=== PATIENT | male | born 1955 | race Caucasian/White ===

== ENCOUNTER → 2021-08-05 09:50 | Outpatient (BNVA) | payer OTHER, SELFPAY | PROVIDERS: PCP Family Medicine; Visit Provider Surgery | DX: Z20.822 Contact with and (suspected) exposure to COVID-19 (principal) | CPT/HCPCS: 87635 ==

== ENCOUNTER 2021-08-11 07:31 | Day surgery (SDC) | payer OTHER, SELFPAY ==
[2021-08-08 12:34] VITALS: BMI 24.0
--- NOTE | 2021-08-11 08:01 | ANES.PREANE2 ---
Pre-Anesthetic Assessment Pre-Anesthetic Assessment: Height/Weight: Height 1.78 m Weight 76.204 kg Preop Diagnosis: screening colonoscopy Proposed Procedure: Operation Date: 08/11/21 09:00 Proposed Procedures p Colonoscopy 99605 K63.5(Not Applicable) - Baldomero Huitron MD Was Beta Sonja taken within 24 hours: Yes Was Clonidine taken within 24 hours: N/A Social: Social History: No tobacco Exam: Pre-Anes Outpt Exam: alert, oriented x 3, clear to auscultation bilaterally and regular rate & rhythm Airway: Submandibular: WNL Cervical ROM: WNL MP: 2 History/ROS: No significant complaints CV/HEM: CV/HEM: HTN Metabolic: Metabolic: Hyperlipidemia Anesthetic Plan: ASA status: 2 Anesthesia: Anesthesia Evaluation and MAC Risk of > 500 ml blood loss (7ml/kg in children): No PFSH Anesthesia PFSH: Medical History (Updated 05/24/21 @ 14:18 by Baldomero Huitron MD) Colon polyps Hyperlipidemia Hypertension Surgical History (Updated 05/24/21 @ 14:18 by Baldomero Huitron MD) History of colonoscopy with polypectomy 2016 History of knee replacement right 2014 History of rotator cuff surgery right (x2) History of vasectomy Family History (Updated 05/24/21 @ 13:55 by Aneta Bonner) Other CAD (coronary artery disease) Diabetes Denies family history of Dementia Lung disease Cancer Stroke Social History (Updated 05/24/21 @ 13:55 by Aneta Bonner) Smoking and tobacco status: never smoked Second hand smoke exposure: No Alcohol intake: never Lives independently: Yes Data Anesthesia Cardiac Studies: No Data to Display
[2021-08-11] MEDS: sodium chloride 0.9% 1,000 ML 30 ML IV (08:10)
[2021-08-11 08:20] VITALS: BP 130/82; PULSE 53; RESP 18; TEMP 36.6; O2SAT 98
--- NOTE | 2021-08-11 09:16 | W.PM.OPSFHP ---
Same Day Surgery H&P Indication for Procedure/HPI DATE OF PROCEDURE: August 11, 2021 CHIEF COMPLAINT/INDICATIONFOR SURGICAL PROCEDURE: colon PREOP DIAGNOSIS: screening colonoscopy PLANNED PROCEDRUE: Operation Date: 08/11/21 09:00 Proposed Procedures p Colonoscopy 69410 K63.5(Not Applicable) - Baldomero Huitron MD Medications/Allergies* Home Medications Medication Instructions Recorded Confirmed Type aspirin 81 mg tablet,delayed 81 mg PO DAILY 05/24/21 08/11/21 History release atenolol 25 mg tablet 25 mg PO DAILY 05/24/21 08/11/21 History hydrochlorothiazide 12.5 mg capsule 12.5 mg PO DAILY 05/24/21 08/11/21 History Vitamin D (with calcium) 50 mcg PO DAILY 08/08/21 08/11/21 History simvastatin 80 mg PO DAILY 08/08/21 08/11/21 History Allergies/Adverse Reactions Allergy/AdvReac Type Severity Reaction Status Date / Time acetaminophen [From Percocet] Allergy Severe dizziness Verified 08/11/21 08:04 oxycodone [From Percocet] Allergy Severe dizziness Verified 08/11/21 08:04 Current Medications: Generic Name Dose Route Start Last Admin Trade Name Freq PRN Reason Stop Dose Admin Sodium Chloride 1,000 mls @ 30 mls/hr 08/11/21 07:45 08/11/21 08:10 Sodium Chloride 0.9% IV 08/12/21 07:44 30 mls/hr .Q24H TERESA Administration Pertinent History/Comorbid Conditions* Medical History (Updated 05/24/21 @ 14:18 by Baldomero Huitron MD) Colon polyps Hyperlipidemia Hypertension Surgical History (Updated 05/24/21 @ 14:18 by Baldomero Huitron MD) History of colonoscopy with polypectomy 2016 History of knee replacement right 2014 History of rotator cuff surgery right (x2) History of vasectomy Family History (Updated 05/24/21 @ 13:55 by Aneta Bonner) Diabetes CAD (coronary artery disease) Denies family history of Dementia Lung disease Cancer Stroke Social History Smoking and tobacco status: never smoked Second hand smoke exposure: No Alcohol intake: never Lives independently: Yes Pertinent Exam Findings alert, oriented x 3 and regular rate & rhythm Recommendations Surgery/Procedure today Coding Level of Care Code Acute [employer]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
--- NOTE | 2021-08-11 09:17 | W.PM.OPSFHP ---
Same Day Surgery H&P Indication for Procedure/HPI DATE OF PROCEDURE: August 11, 2021 CHIEF COMPLAINT/INDICATIONFOR SURGICAL PROCEDURE: colonoscopy PREOP DIAGNOSIS: screening colonoscopy PLANNED PROCEDRUE: Operation Date: 08/11/21 09:00 Proposed Procedures p Colonoscopy 60646 K63.5(Not Applicable) - Baldomero Huitron MD Medications/Allergies* Home Medications Medication Instructions Recorded Confirmed Type aspirin 81 mg tablet,delayed 81 mg PO DAILY 05/24/21 08/11/21 History release atenolol 25 mg tablet 25 mg PO DAILY 05/24/21 08/11/21 History hydrochlorothiazide 12.5 mg capsule 12.5 mg PO DAILY 05/24/21 08/11/21 History Vitamin D (with calcium) 50 mcg PO DAILY 08/08/21 08/11/21 History simvastatin 80 mg PO DAILY 08/08/21 08/11/21 History Allergies/Adverse Reactions Allergy/AdvReac Type Severity Reaction Status Date / Time acetaminophen [From Percocet] Allergy Severe dizziness Verified 08/11/21 08:04 oxycodone [From Percocet] Allergy Severe dizziness Verified 08/11/21 08:04 Current Medications: Generic Name Dose Route Start Last Admin Trade Name Freq PRN Reason Stop Dose Admin Sodium Chloride 1,000 mls @ 30 mls/hr 08/11/21 07:45 08/11/21 08:10 Sodium Chloride 0.9% IV 08/12/21 07:44 30 mls/hr .Q24H TERESA Administration Pertinent History/Comorbid Conditions* Medical History (Updated 05/24/21 @ 14:18 by Baldomero Huitron MD) Colon polyps Hyperlipidemia Hypertension Surgical History (Updated 05/24/21 @ 14:18 by Baldomero Huitron MD) History of colonoscopy with polypectomy 2016 History of knee replacement right 2014 History of rotator cuff surgery right (x2) History of vasectomy Family History (Updated 05/24/21 @ 13:55 by Aneta Bonner) Diabetes CAD (coronary artery disease) Denies family history of Dementia Lung disease Cancer Stroke Social History Smoking and tobacco status: never smoked Second hand smoke exposure: No Alcohol intake: never Lives independently: Yes Pertinent Exam Findings alert and oriented x 3 Recommendations Surgery/Procedure today Coding Level of Care Code Acute 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
[2021-08-11 09:44] VITALS: BP 96/67; PULSE 51; RESP 12; TEMP 36.2; O2SAT 96
--- NOTE | 2021-08-11 09:49 | ANE.PACU2 ---
Inpatient post-anesthesia follow up: Airway intact: Yes Vital signs: Temperature 97.2 F Pulse Rate 51 Respiratory Rate 12 Blood Pressure 96/67 Pulse Oximetry 96 Oxygen Delivery Me thod Room Air Oxygen Flow Rate Fraction of Inspir ed Oxygen Hydration adequate: Yes Nausea and vomiting: No Pain level: 1 Mental status: Baseline
[2021-08-11 09:59] VITALS: BP 123/82; PULSE 50; RESP 14; TEMP 36.6; O2SAT 97
== END 2021-08-11 10:25 | disposition home or self-care (01) ==
PROVIDERS: PCP Family Medicine; Visit Provider Surgery
PROC: 0DJD8ZZ Inspection of Lower Intestinal Tract, Via Natural or Artificial Opening Endoscopic (ICD-10-PCS; CPT 45378; principal; 2021-08-11 09:00)
DX: Z12.11 Encounter for screening for malignant neoplasm of colon (principal); K57.30 Diverticulosis of large intestine without perforation or abscess without bleeding; K64.8 Other hemorrhoids; I10 Essential (primary) hypertension; E78.5 Hyperlipidemia, unspecified; Z79.82 Long term (current) use of aspirin
CPT/HCPCS: 45378; 96360; 96361; J7030

== ENCOUNTER → 2023-01-02 13:36 | Outpatient (BNVA) | payer OTHER, SELFPAY | PROVIDERS: PCP Family Medicine; Visit Provider Internal Medicine | DX: R00.2 Palpitations (principal); R07.9 Chest pain, unspecified; I10 Essential (primary) hypertension; Z79.82 Long term (current) use of aspirin; R55 Syncope and collapse | CPT/HCPCS: 93005; 99204 ==

== ENCOUNTER 2023-01-19 09:29 | Outpatient (CLI) | payer OTHER, SELFPAY ==
--- NOTE | 2023-01-19 10:15 | USCV_ITS ---
Delano Felix Age: 67 Gender: M : 1955 Exam Date: 01/19/2023 09:57 Ordering Phys: Enrique Edmonds M.D ([email or web address]) Technologist: [place] [facility] [place]: sob, chest pain BP: 125 / 75 HR: 57 Rhythm: Other Technical Quality: Adequate MEASUREMENTS (Male / Female) Normal Values 2D ECHO LV Diastolic Diameter PLAX 4.7 cm 4.2 - 5.9 / 3.9 - 5.3 cm LV Systolic Diameter PLAX 3.5 cm IVS Diastolic Thickness 1.4 cm 0.6 - 1.0 / 0.6 - 0.9 cm IVS Systolic Thickness 1.6 cm LVPW Diastolic Thickness 1.5 cm 0.6 - 1.0 / 0.6 - 0.9 cm LVPW Systolic Thickness 1.3 cm LVOT Diameter 2.1 cm LV Ejection Fraction 2D Teich 50.9 % LV Ejection Fraction MOD 2C 54.0 % LV Ejection Fraction 2C AL 53.1 % LA Diameter 3.5 cm Aorta at Sinotubular Diameter 3.0 cm IVC Diameter 1.1 cm M-MODE Aortic Annulus Diameter 4.1 cm LA Ao Ratio MM 0.9 MV E Point Septal Separation 0.3 cm DOPPLER AV Peak Velocity 131.0 cm/s LVOT Peak Velocity 114.0 cm/s AV Area Cont Eq vti 3.2 cm squared AV Area Cont Eq pk 3.0 cm squared MV Area PHT 1.7 cm squared Mitral E to A Ratio 0.8 MV E' Velocity 29.0 cm/s Mitral E to MV E' Ratio 4.2 Mitral E to LV E' Lateral Ratio 3.1 Mitral E to LV E' Septal Ratio 6.8 TR Peak Velocity 248.0 cm/s TR Peak Gradient 24.6 mmHg TV Peak E Velocity 100.0 cm/s Right Atrial Pressure 3.0 mmHg Pulmonary Artery Systolic Pressu 27.6 mmHg RV Acceleration Time 0.1 s FINDINGS Left Ventricle Left ventricle is normal in size. LV systolic function is normal with EF of 50 to 55%. Septal motion is consistent with conduction abnormality. Grade 1 diastolic dysfunction Right Ventricle Normal in size and function Right Atrium Normal in size Left Atrium Normal in size Mitral Valve Structurally normal mitral valve. Mild mitral regurgitation. Aortic Valve Structurally normal aortic valve. No significant stenosis or regurgitation. Tricuspid Valve Mild tricuspid regurgitation. Pulmonary artery systolic pressure is normal. Pulmonic Valve Not well-visualized. Pericardium Normal Aorta Normal in size IVC Appears to be normal CONCLUSIONS LV systolic function is normal with EF of 50 to 55%. Septal motion is consistent with conduction abnormality Grade 1 diastolic dysfunction Mild mitral regurgitation Mild tricuspid regurgitation No comparison studies are available Enrique Edmonds MD (Electronically Signed) Final Date: 19 January 2023 16:09 S
== END 2023-01-19 09:30 | disposition home or self-care (01) ==
PROVIDERS: PCP Family Medicine; Visit Provider Internal Medicine
DX: R06.02 Shortness of breath (principal); R07.9 Chest pain, unspecified; I08.1 Rheumatic disorders of both mitral and tricuspid valves
CPT/HCPCS: 93306

== ENCOUNTER → 2023-03-06 12:25 | Outpatient (BNVA) | payer OTHER, SELFPAY | PROVIDERS: PCP Family Medicine; Visit Provider Internal Medicine | DX: R00.2 Palpitations (principal); R07.9 Chest pain, unspecified; I10 Essential (primary) hypertension | CPT/HCPCS: 99214 ==

== ENCOUNTER → 2023-12-04 12:18 | Outpatient (BNVA) | payer OTHER, SELFPAY | PROVIDERS: PCP Family Medicine; Visit Provider Internal Medicine | DX: I10 Essential (primary) hypertension (principal); R00.2 Palpitations | CPT/HCPCS: 99214 ==

== ENCOUNTER → 2024-04-28 11:20 | Outpatient (BNVA) | payer OTHER, SELFPAY | PROVIDERS: PCP Family Medicine; Visit Provider Internal Medicine | DX: R00.2 Palpitations (principal); I10 Essential (primary) hypertension; R07.9 Chest pain, unspecified | CPT/HCPCS: 99214 ==

== ENCOUNTER 2024-05-09 07:16 | Outpatient (CLI) | payer OTHER, SELFPAY ==
[2024-05-09 08:17] LABS: Basophils % 0.5 %; Eosinophils # 0.1 10^3/uL (0.0-0.8); Eosinophils % 1.3 %; Hematocrit 47.5 % (37-53); Lymphocytes % 46.8 %; Mean Corpuscular HGB Conc 33.1 g/dL (30-55); Mean Corpuscular Hemoglobin 28.6 pg (27-33); Mean Corpuscular Volume 86.7 fl (82-101); Mean Platelet Volume 9.7 fL (7.4-10.4); Monocytes # 0.6 10^3/uL (0.2-0.9); Neutrophils # 2.67 10^3/uL (1.8-7.7); Neutrophils % 42.2 %; Nucleated Red Blood Cells % 0 %; Platelet Count 176 10^3/cmm (157-399); Red Blood Count 5.48 10^6/uL (3.85-5.65); Red Cell Distribution Width 13.9 % (12.1-15.1); White Blood Count 6.31 10^3/uL (3.29-11.43)
[2024-05-09 08:34] LABS: INR 0.99 (0.83-1.21); Prothrombin Time (Patient) 13.4 Seconds (12.0-15.1)
[2024-05-09 08:41] LABS: Anion Gap 13.7 (5-19); Blood Urea Nitrogen 22 mg/dL (8-23); Calcium 9.4 mg/dL (8.5-10.5); Carbon Dioxide 28 mmol/L (22-29); Chloride 106 mmol/L (98-107); Glomerular Filtration Rate 83.9 mL/min (90-130); Glucose 99 mg/dL (65-115); Osmolality Calculated 299 mOsm/kg (285-295); Potassium 4.7 mmol/L (3.5-5.1); Sodium 143 mmol/L (136-145)
== END 2024-05-09 07:17 | disposition home or self-care (01) ==
PROVIDERS: PCP Family Medicine; Visit Provider Internal Medicine
DX: I10 Essential (primary) hypertension (principal); R00.2 Palpitations; I20.0 Unstable angina; R58 Hemorrhage, not elsewhere classified
CPT/HCPCS: 80048; 85025; 85610

== ENCOUNTER 2024-05-15 05:53 | Outpatient (CLI) | payer OTHER, SELFPAY ==
[2024-05-15] VITALS (20 sets, daily range): BP systolic 104–156; BP diastolic 72–99; PULSE 50–59; RESP 9–20; TEMP 36.5; O2SAT 94–97; BMI 25.5
--- NOTE | 2024-05-15 06:00 | XACV_ITS ---
Exam Room: 2 Ht: 178 cm Wt: 81 kg BSA: 2.01 m2 Gender: Male : 1955 Any Known Allergies: Other Exam Priority: Routine Procedure(s): Procedure Description: Diagnostic procedure Procedure Description: Left Heart Catheterization Procedure Description: Left ventriculography Procedure Description: Coronary Angiography Diagnostic Cath Status: Elective Diagnostic Findings * INDICATION: Worsening angina. * Left Main has no significant disease. * Circumflex has no significant disease. * Right Coronary Artery has no significant disease. * Proximal Left Anterior Descending: minimal 30% stenosis, LILIANA: 3 flow. * Coronary angiography shows right dominance. Conclusions 1. There is minimal coronary artery disease with one vessel disease. 2. Normal left ventricular systolic function. Ejection fraction of 55%. Recommendations * Aggressive risk factor modification. * Outpatient cardiology follow up in 2-4 weeks. Ventriculography Ejection Fraction: 55.0 % Pressures Phase:Rest AO : 94 / 72 ( 85 ) @ 8:36:00 AM 109 / 85 ( 98 ) @ 8:40:00 AM 129 / 77 ( 98 ) @ 8:45:00 AM 127 / 76 ( 97 ) @ 8:45:00 AM LV : 122 / -8 / 13 @ 8:44:00 AM 129 / -5 / 15 @ 8:45:00 AM 127 / -2 / 17 @ 8:45:00 AM Valves Phase:DefaultPhase AV : 0.0 @ 7:52:11 AM AV Mean Gradient: 0.0 @ 7:52:11 AM Clinical Evaluation EBL: 5mL-10mL Procedural Details Pre-Procedure Time Out. Identified patient by full name and date of as verbalized by the patient/guarantor. Does the consent match the physician's order: Yes. Accurate & Complete Informed Consent: Yes. Inpatient/Outpatient History & Physical on Chart: Yes. If H&P is completed, is and addenduem needed: No; If yes, is the addendum complete: N/A. Visualize and Verify Site with Patient/Guarantor: N/A. Relevant Radiology Images available: Yes. Pre-op teaching completed and patient verbalized understanding. The risks, benefits, and alternatives of sedation and/or procedure were discussed by physician. The patient agrees to continue. Procedure started. [facility] Clinical Fraility Score: 3: Managing Well. 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 Chest Pain Symptom Assessment: Typical Angina Symptoms. Correct patient, site and procedure confirmed by cath team. Current diagnosis: Chest Pain. IV Site on Arrival: 20 gauge in the left anticubital. IV Fluids: 0.9% NaCl at KVO. 0 mL infused prior to vat house laborer. Pre Procedural Pulses: bilateral dorsalis pedis was 2+. Pre Procedural Pulses: bilateral posterior tibial was Doppled. Pre Procedural Pulses: bilateral radial was 3+. Oxygen started at 2liters/min via nasal canula. right groin was prepped with chloroprep then draped in the usual sterile fashion. right radial was prepped with chloroprep then draped in the usual sterile fashion. Physician notified. Baseline sample Acquired. HR: 51 BPM. Physician arrived. Current Diagnosis : Chest Pain. Physician scrubbed in. Immediate Pre-Procedure Time Out. Correct Patient: Yes; Correct Procedure: Yes; Correct Site: Yes; Correct Patient Position: Yes; Correct Supplies: Yes; Dried Flammable Prep: Yes; Blood Products Available: N/A;. Lidocaine 1% infiltrated to the right radial. Arterial access obtained. A 5 yakut TIG catheter in over wire. Multiple views taken of left coronary artery. Catheter redirected to the RCA. Catheter removed over the exchange wire. A 5 yakut JR4 catheter in over wire. Multiple views taken of right coronary artery. Catheter removed over the exchange wire. A 5 yakut Angled Pig catheter in over wire. EDP Sample taken: LV 122/-9,13; HR: 54 BPM; SpO2: 96%. LV gram performed in MCDONALD @ 10 mL/second for a total of 30 mL. EDP Sample taken: LV 129/-6,15; HR: 63 BPM; SpO2: 97%. Pullback taken: LV 127/-3,17; AO 129/77(98); Mean: 0mmHg, Peak to Peak: 0mmHg, SEP: 10sec/min; HR: 57 BPM; SpO2: 97%. Catheter removed over the exchange wire. Physician scrubbed out. A TR Band was successful obtaining hemostatsis at the Right Radial artery insertion site. Post Procedure: Pulses reassessed and unchanged. PERRLA. Strong, equal hand fruit grader bilaterally. No VTE prophylaxis required. Medication's Wasted: Nitro = 49.8 mcg. Medication's Wasted: Lidocaine 1% = 18 mL. Medication's Wasted: Other = Fentanyl 50mcg Versed 1 mg. Total IV fluids: 45 mL. Medication's Wasted: Heparin = 1000 units. Vital chart was stopped. Complications: None. Estimated blood loss: 5mL-10mL. Responsiveness - Normal response to verbal stimuli; alert and oriented, PERRLA. Airway - Unaffected, no intervention required; spontaneous ventilation. Circulation: W/N/L, pulses unchanged. Nausea/Vomiting: No. Procedure completed. Patient transferred by wheelchair to CPRU. Access Site Site: Right Radial artery Sheath Size: 6 Fr Hemostasis Method: TR Band Hemostasis Success: Successful Procedure Medications Start: 7:20 AM Stop: 7:20 AM Medication: Versed Amount: 1 mg Route: I.V. Start: 7:20 AM Stop: 7:20 AM Medication: Fentanyl Amount: 50 mcg Route: I.V. Start: 7:33 AM Stop: 7:33 AM Medication: Nitrogylcerin Amount: 200 mcg Route: I.A. Start: 7:34 AM Stop: 7:34 AM Medication: Heparin Amount: 5000 units Route: I.V. I, the attending physician, have reviewed and verified all procedure medications. Yes, all medications given per verbal order History/Risk Factors Hypertension: Yes Dyslipidemia: Yes Peripheral Arterial Disease (PAD): No Myocardial Infarction (DE): No Obesity: No Renal Disease: No Tobacco Use: Never Prior Interventions PCI: No CABG: No Valve Surgery: No Report Signatures Finalized by Enrique Edmonds MD on 05/28/2024 11:55 AM
[2024-05-15] MEDS: diphenhydrAMINE 50 mg Capsule PO (06:14)
--- NOTE | 2024-05-15 07:13 | W.PM.OPSUD ---
Surgery/Procedure H&P Update DATE OF PROCEDURE: May 15, 2024 DATE H&P PERFORMED: 04/28/24 H&P UPDATE INFORMATION: I have reviewed H&P completed within last 30 days, I have examined patient prior to procedure and No changes to prior documentation PREOP DIAGNOSIS: Worsening angina PRIMARY INDICATION FOR PROCEDURE: Worsening angina PLANNED PROCEDURE: Operation Date: 05/15/24 07:00 Proposed Procedures p Cardiac Catheterization - [facility] w/wo LV & Coros(Left) - Enrique Edmonds M.D Possible percutaneous coronary intervention PATIENT REASSESSED PRIOR TO SEDATION, WITH NO CHANGE NOTED: Yes PHYSICAL EXAM: alert, oriented x 3, clear to auscultation bilaterally and regular rate & rhythm AIRWAY EVAL/ANESTHESIA PLAN: normal airway, ASA III, Local Anesthesia, Risks, benefits & alternatives of sedation and/or procedure discussed and Patient agrees to continue as planned ADDITIONAL INFORMATION: Moderate sedation
--- NOTE | 2024-05-15 10:13 | PC.NURSE ---
Patient received from mini lab operator via wheelchair at ~0840. Patient denies pain or other needs. Patient has TR band in place to right wrist. No s/s of bleeding or hematoma formation observed. Instructed patient on site care and restrictions. Plan for discharge later today. Patient verbalized complete understanding.
--- NOTE | 2024-05-15 11:50 | PC.NURSE ---
Initiated TR Band removal at 0915 removing 2ml of air every 15-20min until all air removed at this time. No s/s of bleeding or hematoma formation observed. Covered site with 2x2 and coban. Instructed patient on site care and restrictions. Will continue to monitor.
--- NOTE | 2024-05-15 12:42 | PC.NURSE ---
Patient discharged to home. Instruction provided regarding follow up needs, no medication changes and site care. Patient verbalized complete understanding. Patient ambulated to private vehicle with significant other at side. Dressing to right wrist remains c,d,i without s/s of bleeding or hematoma formation observed. IV removed prior to discharge.
== END 2024-05-15 12:44 | disposition home or self-care (01) ==
LOC: CCL 06:00 → CSU 12:12
PROVIDERS: PCP Family Medicine; Visit Provider Internal Medicine
DX: I25.10 Atherosclerotic heart disease of native coronary artery without angina pectoris (principal); I10 Essential (primary) hypertension; E78.5 Hyperlipidemia, unspecified; Z79.82 Long term (current) use of aspirin
CPT/HCPCS: 36415; 93458; 96374; 96375; 99152; 99153; C1769; C1887; C1894; G0378; J1644; J2250; J3010; J3490; J7030; Q0163; Q9967

== ENCOUNTER → 2024-05-29 13:39 | Outpatient (BNVA) | payer OTHER, SELFPAY | PROVIDERS: PCP Family Medicine; Visit Provider Nurse Practitioner Family | DX: I25.10 Atherosclerotic heart disease of native coronary artery without angina pectoris (principal); I10 Essential (primary) hypertension | CPT/HCPCS: 99213 ==

== ENCOUNTER → 2024-12-18 13:04 | Outpatient (BNVA) | payer OTHER, SELFPAY | PROVIDERS: PCP Family Medicine; Visit Provider Internal Medicine | DX: R00.2 Palpitations (principal); R07.9 Chest pain, unspecified; I10 Essential (primary) hypertension | CPT/HCPCS: 99213 ==